=== PATIENT | male | born 1990 | race Caucasian/White ===

== ENCOUNTER 2017-09-05 11:46 | Emergency (ER) | payer OTHER ==
[~2017-09-05] VITALS: Ht 180.3 cm; Wt 80.3 kg
[~2017-09-05 11:46] MED LIST: AUGMENTIN 875 M1 TAB PO; MECLIZINE HCL25 M2 PO
[2017-09-05] MEDS ORDERED: CEPHALEXIN500 M1 PO (13:21)
== END 2017-09-05 13:44 | disposition home or self-care (01) ==
LOC: ED 11:46
DX: S61.231A Puncture wound without foreign body of left index finger without damage to nail, initial encounter (principal); W22.8XXA Striking against or struck by other objects, initial encounter; Y93.89 Activity, other specified; Y92.69 Other specified industrial and construction area as the place of occurrence of the external cause; Y99.9 Unspecified external cause status